=== PATIENT | female | born 1990 | race Caucasian/White ===

== ENCOUNTER 2016-11-04 17:12 | Emergency (ER) | payer OTHER ==
[2016-11-04 17:16] VITALS: BP 113/71; BMI 28.2
[2016-11-04 17:17] VITALS: PULSE 97; TEMP 98
[2016-11-04 18:39] LABS: BASOPHIL 0.9 % (0-2.0); EOSINOPHIL 4.6 % (0-4.5); MCH 29.5 pg (25.7-33.7); MCHC 33.4 g/dl (32.0-36.0); MEAN CELL VOLUME 88.5 fl (80-96); MEAN PLT VOLUME 9.8 fl (7.5-11.1); NEUTROPHILS 46.9 % (42.8-82.8); PLATELET COUNT 210 K/MM3 (134-434); RDW 13.6 % (11.6-15.6); URINE APPEARANCE SLCLOUDY; URINE BILIRUBIN NEGATIVE (NEGATIVE); URINE COLOR LTYELLOW; URINE GLUCOSE (UA) NEGATIVE (NEGATIVE); URINE KETONE NEGATIVE (NEGATIVE); URINE NITRITE NEGATIVE (NEGATIVE); URINE PROTEIN NEGATIVE (NEGATIVE); URINE UROBILINOGEN NEGATIVE E.U./dl (0.2-1.0); WHITE BLOOD COUNT 6.3 K/mm3 (4.0-10.0)
[2016-11-04 18:40] LABS: URINE BLOOD 2+ (NEGATIVE); URINE LEUK ESTERASE 3+ (NEGATIVE)
[2016-11-04 18:42] LABS: URINE BACTERIA RARE /hpf (NONE SEEN); URINE MUCUS RARE; URINE RBC 4 /hpf (0-3); URINE WBC 16 /hpf (3-5)
--- NOTE | 2016-11-04 19:30 | PDOC ---
History of Present Illness - General History Source: Patient Exam Limitations: No Limitations - History of Present Illness Initial Comments: 11/04/16 19:36 The patient is a 26-year-old female who is 5 weeks , , with no significant past medical history, who presents to the ED with vaginal spotting today. Pt had an US earlier, but does not know the results. Patient reports minimal cramping. Patient denies any dysuria, nausea, or vomiting. <Olive Benoit - Last Filed: 11/04/16 19:36> - General History Source: Patient <RojasNahum grigsby - Last Filed: 11/04/16 21:15> - General Chief Complaint: Vaginal Bleeding Stated Complaint: VAGINAL BLEEDING/5 WKS Time Seen by Provider: 11/04/16 19:30 Past History <Olive Benoit - Last Filed: 11/04/16 19:36> - Reproductive History Is Patient Now?: Yes (#): 3 Para: 0 - Psycho/Social/Smoking Cessation Hx Anxiety: No Suicidal Ideation: No Smoking History: Never smoked Have you smoked in the past 12 months: No Information on smoking cessation initiated: No Hx Alcohol Use: No Drug/Substance Use Hx: No Substance Use Type: None <Nahum Duran - Last Filed: 11/04/16 21:15> - Past Medical History Allergies/Adverse Reactions: Allergies Allergy/AdvReac Type Severity Reaction Status Date / Time No Known Allergies Allergy Verified 11/04/16 17:15 Home Medications: Ambulatory Orders Cephalexin Monohydrate [Keflex -] 500 mg PO BID #20 capsule 11/04/16 Review of Systems - Review of Systems Able to Perform ROS?: Yes Comments:: 11/04/16 19:36 CONSTITUTIONAL: Absent: fever, no chills, no fatigue EYES: Absent: visual changes ENT: Absent: ear pain, no sore throat CARDIOVASCULAR: Absent: chest pain, no palpitations RESPIRATORY: Absent: cough, no SOB GI: Present: abdominal cramping Absent: no nausea, no vomiting, no constipation, no diarrhea GENITOURINARY: Present: vaginal bleeding Absent: dysuria, no frequency, no hematuria MUSKULOSKELETAL: Absent: back pain, no arthralgia, no myalgia SKIN: Absent: rash NEURO: Absent: headache <Olive Benoit - Last Filed: 11/04/16 19:36> *Physical Exam - Vital Signs Last Vital Signs Temp Pulse Resp BP Pulse Ox 98 F 97 H 18 113/71 99 11/04/16 17:15 11/04/16 17:15 11/04/16 17:15 11/04/16 17:15 11/04/16 17:15 - Physical Exam Comments: 11/04/16 19:37 GENERAL: Well-appearing, well-nourished. No apparent distress. HEENT: Normocephalic, atraumatic. PERRL, EOM intact. CARDIOVASCULAR: Normal S1, S2. Regular rate and rhythm. PULMONARY: Clear to auscultation bilaterally. ABDOMEN: Soft, non-distended, non-tender. EXTREMITIES: Normal ROM in all four extremities. No gross deformities. SKIN: Warm, dry. No rash NEUROLOGICAL: No focal neurological deficits. Pelvic Exam: Pelvic US <Olive Benoit - Last Filed: 11/04/16 19:36> - Vital Signs Last Vital Signs Temp Pulse Resp BP Pulse Ox 98 F 97 H 18 113/71 99 11/04/16 17:15 11/04/16 17:15 11/04/16 17:15 11/04/16 17:15 11/04/16 17:15 <Nahum Duran - Last Filed: 11/04/16 21:15> ED Treatment Course - LABORATORY CBC & Chemistry Diagram: 11/04/16 16:27 - ADDITIONAL ORDERS Additional order review: Laboratory Results 11/04/16 11/04/16 16:27 16:27 Urine Color Ltyellow Urine Appearance Slcloudy Urine pH 6.0 Urine Protein Negative Urine Glucose (UA) Negative Urine Ketones Negative Urine Blood 2+ H Urine Nitrite Negative Urine Bilirubin Negative Urine Urobilinogen Negative Ur Leukocyte Esterase 3+ H Urine RBC 4 Urine WBC 16 Ur Epithelial Cells Rare Urine Bacteria Rare Urine Mucus Rare Blood Type O POSITIVE Antibody Screen Negative 11/04/16 16:27 RBC 4.63 MCV 88.5 MCHC 33.4 RDW 13.6 MPV 9.8 Neutrophils % 46.9 Lymphocytes % 39.7 Monocytes % 7.9 Eosinophils % 4.6 H Basophils % 0.9 <Olive Benoit - Last Filed: 11/04/16 19:36> - LABORATORY CBC & Chemistry Diagram: 11/04/16 16:27 - ADDITIONAL ORDERS Additional order review: Laboratory Results 11/04/16 11/04/16 16:27 16:27 Urine Color Ltyellow Urine Appearance Slcloudy Urine pH 6.0 Urine Protein Negative Urine Glucose (UA) Negative Urine Ketones Negative Urine Blood 2+ H Urine Nitrite Negative Urine Bilirubin Negative Urine Urobilinogen Negative Ur Leukocyte Esterase 3+ H Urine RBC 4 Urine WBC 16 Ur Epithelial Cells Rare Urine Bacteria Rare Urine Mucus Rare Blood Type O POSITIVE Antibody Screen Negative 11/04/16 16:27 RBC 4.63 MCV 88.5 MCHC 33.4 RDW 13.6 MPV 9.8 Neutrophils % 46.9 Lymphocytes % 39.7 Monocytes % 7.9 Eosinophils % 4.6 H Basophils % 0.9 <Nahum Duran - Last Filed: 11/04/16 21:15> Medical Decision Making - Medical Decision Making 11/04/16 21:15 Dr. Duran: The scribe's documentation has been prepared under my direction and personally reviewed by me in its entirery. I confirm that the note above accurately reflects all work, treatment, procedures, and medical decision making performed by me. <Nahum Duran - Last Filed: 11/04/16 21:15> *DC/Admit/Observation/Transfer - Attestations Scribe Attestion: 11/04/16 19:38 Documentation prepared by Olive Benoit, acting as medical claims processor for Nahum Duran MD. <Olive Benoit - Last Filed: 11/04/16 19:36> - Discharge Dispostion Admit: No <Nahum Duran - Last Filed: 11/04/16 21:15> Diagnosis at time of Disposition: UTI (urinary tract infection), Threatened Qualifiers: Weeks of gestation: less than 8 weeks Qualified Code(s): Z3A.01 - Less than 8 weeks gestation of - Discharge Dispostion Disposition: HOME Condition at time of disposition: Stable - Prescriptions Prescriptions: Cephalexin Monohydrate [Keflex -] 500 mg PO BID #20 capsule - Referrals Referrals: STAFF,NOT ON [Primary Care Provider] - Vinnie Jimenez MD [Staff Physician] - - Patient Instructions Printed Discharge Instructions: DI for Urinary Tract Infection (UTI), DI for Threatened
[2016-11-04] MEDS ORDERED: CEPHALEXIN MONOHYDRATE 500 MG CAPSULE (UD) PO ONE (21:13)
[2016-11-04] MEDS ORDERED: CEPHALEXIN MONOHYDRATE 250 MG CAPSULE (FP) ONE (21:16)
== END 2016-11-04 21:35 | disposition home or self-care (01) ==
LOC: JER 17:12
DX: O26.891 Other specified pregnancy related conditions, first trimester (principal); Z3A.01 Less than 8 weeks gestation of pregnancy; O20.0 Threatened abortion; N39.0 Urinary tract infection, site not specified
CPT/HCPCS: 36415; 76817-TC; 81003; 81015; 84702; 85025; 86850; 86900; 86901; 87086; 99281-25

== ENCOUNTER 2017-08-22 19:25 | Emergency (ER) | payer OTHER ==
[2017-08-22 19:59] VITALS: BP 139/99; PULSE 74; TEMP 98.3; BMI 26.7
--- NOTE | 2017-08-22 21:34 | PDOC ---
History of Present Illness - General Chief Complaint: Pain Stated Complaint: PAIN Time Seen by Provider: 08/22/17 21:20 History Source: Patient Exam Limitations: No Limitations - History of Present Illness Travel History: No Initial Comments: 08/22/17 21:29 This is a 27-year-old woman presents to the emergency department with perirectal pain and constipation for the past 6 weeks status post vaginal delivery. Patient states when she moves her bowels she notices a little bit of blood in the toilet and also on the toilet paper. She has been forcefully moving her bowels daily but has increased pain. Patient is tried adding fruits of vesicles to her diet but does not drink a lot of water. Past History - Past Medical History Allergies/Adverse Reactions: Allergies Allergy/AdvReac Type Severity Reaction Status Date / Time No Known Allergies Allergy Verified 08/22/17 20:00 Home Medications: Ambulatory Orders NK [No Known Home Medication] 08/22/17 - Reproductive History (#): 3 Para: 0 - Suicide/Smoking/Psychosocial Hx Smoking History: Never smoked Have you smoked in the past 12 months: No Information on smoking cessation initiated: No Hx Alcohol Use: No Drug/Substance Use Hx: No Substance Use Type: None Review of Systems - Review of Systems Able to Perform ROS?: Yes Is the patient limited Setswana proficient: No Constitutional: No: Symptoms Reported HEENTM: No: Symptoms Reported Respiratory: No: Symptoms reported Cardiac (ROS): No: Symptoms Reported ABD/GI: Yes: See HPI : No: Symptoms Reported Musculoskeletal: No: Symptoms Reported Integumentary: No: Symptoms Reported Neurological: No: Symptoms reported Endocrine: No: Symptoms Reported Hematologic/Lymphatic: No: Symptoms Reported *Physical Exam - Vital Signs Last Vital Signs Temp Pulse Resp BP Pulse Ox 98.3 F 74 18 139/99 97 08/22/17 19:56 08/22/17 19:56 08/22/17 19:56 08/22/17 19:56 08/22/17 19:56 - Physical Exam General Appearance: Yes: Appropriately Dressed. No: Apparent Distress HEENT: positive: Normal ENT Inspection Neck: positive: Trachea midline, Supple Respiratory/Chest: positive: Lungs Clear, Normal Breath Sounds. negative: Respiratory Distress, Accessory Muscle Use Cardiovascular: positive: Regular Rhythm, Regular Rate. negative: Murmur Gastrointestinal/Abdominal: positive: Normal Bowel Sounds, Soft. negative: Tender Rectal Exam: positive: hemorrhoids (external non-thrombosed) Musculoskeletal: positive: Normal Inspection. negative: CVA Tenderness Extremity: positive: Normal Inspection Integumentary: positive: Normal Color, Dry, Warm Neurologic: positive: Alert, Normal Response Medical Decision Making - Medical Decision Making 08/22/17 21:36 A/P: 27-year-old female who is 6 weeks presenting with perirectal pain or moving her bowels Nonthrombosed hemorrhoid noted to the 7 o'clock position on the patient's rectum No bleeding at present No internal hemorrhoids Discharge home *DC/Admit/Observation/Transfer Diagnosis at time of Disposition: Hemorrhoids Qualifiers: Hemorrhoid type: unspecified Qualified Code(s): K64.9 - Unspecified hemorrhoids - Discharge Dispostion Disposition: HOME Condition at time of disposition: Stable Admit: No - Referrals - Patient Instructions Additional Instructions: Use Tucks medicated pads and Anusol for your hemorrhoids. Drink plenty of fluids. Take Colace as needed to soften her stools. Eats a high fiber diet. Return to emergency department for severe pain, rectal bleeding, or any other concerns. - Post Discharge Activity
== END 2017-08-22 21:40 | disposition home or self-care (01) ==
LOC: JERFT 19:25
DX: O87.2 Hemorrhoids in the puerperium (principal)
CPT/HCPCS: 99281-25

== ENCOUNTER 2018-10-13 04:03 | Emergency (ER) | payer SELFPAY, OTHER | END 2018-10-13 07:12 | disposition home or self-care (01) | LOC: JER 04:03 ==